=== PATIENT | female | born 1955 | race Caucasian/White ===

== ENCOUNTER 2020-07-11 08:30 | Emergency (ER) | payer OTHER ==
[~2020-07-11] VITALS: Ht 157.5 cm; Wt 78.5 kg
[2020-07-11 09:42] VITALS: BP 148/67
== END 2020-07-11 09:47 | disposition home or self-care (01) ==
LOC: ER 08:30
DX: N75.0 Cyst of Bartholin's gland (principal); B37.2 Candidiasis of skin and nail; Z88.0 Allergy status to penicillin; Z88.1 Allergy status to other antibiotic agents; Z88.2 Allergy status to sulfonamides

== ENCOUNTER 2022-04-30 20:14 | Inpatient (IN) | payer OTHER ==
[~2022-04-30] VITALS: Ht 157.5 cm; Wt 84.2 kg
[2022-05-01] VITALS (86 sets, daily range): BP systolic 104–151; BP diastolic 42–108
[2022-05-01] MEDS ORDERED: DOCUSATE SOD 100 MG CAP PO PRN (00:30)
[2022-05-01] MEDS ORDERED: diphenhdrAMINE HCL 50 MG/1 ML VL IV PRN (00:30)
[2022-05-01] MEDS ORDERED: SODIUM CHLORIDE 0.9% 1,000 ML IV SCH (00:30)
[2022-05-01] MEDS ORDERED: ACETAMINOPHEN 325 MG TAB PO PRN (00:30)
[2022-05-01] MEDS ORDERED: ONDANSETRON HCL 4 MG/2 ML VIAL IV PRN (00:30)
[2022-05-01] MEDS ORDERED: SODIUM FERR GLUC 62.5MG/5ML 125 MG in SODIUM CHL 0.9% 100 ML IV ONE (00:30)
[2022-05-01] MEDS ORDERED: NITROGLYCERIN 0.4 MG SL TAB SL PRN (00:30)
[2022-05-01] MEDS ORDERED: MORPHINE SULFATE INJ 2 MG/ml SYRG IV PRN (00:30)
[2022-05-01] MEDS ORDERED: FUROSEMIDE 40 MG/4 ML VIAL IV ONE (00:45)
[2022-05-01 00:52] LABS: Basophils # (auto) 0 10 ^3/uL (0-0.2); Eosinophils # (auto) 0 10 ^3/uL (0-0.8); Monocytes # (auto) 0.7 10 ^3/uL (0-1.3)
[2022-05-01 00:54] LABS: Basophils % (auto) 0.1 % (0.0-2.0); Lymphocytes # (auto) 0.6 10 ^3/uL (0.4-5.4); Mean Corpuscular Hemoglobin 24.2 pg (28.0-32.0); Mean Corpuscular Hgb Conc. 29.5 g/dL (32.0-36.0); Monocytes % (auto) 8.9 % (0.0-12.0); Neutrophils # (auto) 6.6 10 ^3/uL (1.6-8.6); Nucleated Red Blood Cells % 0.3 %; Red Blood Cells 1.71 10^6/uL (4.0-5.20); White Blood Cell 7.9 10^3/uL (4.4-10.8)
[2022-05-01 00:56] LABS: Red Cell Distribution Width 25.9 % (11.8-14.3)
[2022-05-01 00:58] LABS: Hemoglobin 4.1 g/dL (12.2-16.2)
[2022-05-01 01:15] LABS: Albumin 2.7 g/dL (3.4-5.0); BUN/Creatinine Ratio 31.3; Calcium 8.1 mg/dL (8.5-10.1)
[2022-05-01 01:17] LABS: Bilirubin, Total 0.4 mg/dL (0.2-1.0)
[2022-05-01] MEDS: HYDROcodone-ACET 5/325MG TAB PO PRN ×2 (01:56→21:37)
[2022-05-01] MEDS ORDERED: diphenhdrAMINE HCL 25 MG CAP PO ONE (02:45)
[2022-05-01] MEDS ORDERED: ACETAMINOPHEN 500 MG TAB PO ONE (02:45)
[2022-05-01 05:50] LABS: Basophils # (auto) 0 10 ^3/uL (0-0.2); Eosinophils # (auto) 0 10 ^3/uL (0-0.8); Eosinophils % (auto) 0.1 % (0.0-7.0); Hematocrit 15.3 % (36.0-46.0); Lymphocytes # (auto) 1.1 10 ^3/uL (0.4-5.4); Neutrophils # (auto) 5.6 10 ^3/uL (1.6-8.6)
[2022-05-01 05:54] LABS: Basophils % (auto) 0.5 % (0.0-2.0); Lymphocytes % (auto) 15.1 % (10.0-50.0); Mean Corpuscular Hemoglobin 25.4 pg (28.0-32.0); Mean Corpuscular Hgb Conc. 30.4 g/dL (32.0-36.0); Mean Corpuscular Volume 83.5 fL (80.0-100.0); Monocytes # (auto) 0.8 10 ^3/uL (0-1.3); Monocytes % (auto) 10.3 % (0.0-12.0); Nucleated Red Blood Cells % 0.2 %; Red Blood Cells 1.83 10^6/uL (4.0-5.20); White Blood Cell 7.6 10^3/uL (4.4-10.8)
[2022-05-01 06:12] LABS: Albumin 2.8 g/dL (3.4-5.0); Calcium 7.9 mg/dL (8.5-10.1); Potassium 4.2 mmol/L (3.5-5.1)
[2022-05-01 06:14] LABS: Red Cell Distribution Width 26.7 % (11.8-14.3)
[2022-05-01 06:15] LABS: Hemoglobin 4.6 g/dL (12.2-16.2)
[2022-05-01 06:17] LABS: Bilirubin, Total 0.4 mg/dL (0.2-1.0); Total Protein 6.8 g/dL (6.4-8.2)
[2022-05-01] MEDS: LEVOTHYROXINE SODIUM 25 MCG TAB PO SCH (06:46)
[2022-05-01] MEDS ORDERED: OPTISON 3ml Vial for INJ IV ONE (10:18)
[2022-05-01] MEDS ORDERED: ENOXAPARIN SOD 80 MG/0.8ML SYRINGE SC SCH (10:44)
[2022-05-01] MEDS: FAMOTIDINE (10MG/ML) 2ML VL IV SCH ×2 (11:38→21:15)
[2022-05-01] MEDS: FUROSEMIDE 40 MG/4 ML VIAL IV SCH (11:39)
[2022-05-01] MEDS: ASPirin 81 mg TAB PO SCH (11:39)
[2022-05-01] MEDS: CARVEDILOL 3.125 MG TAB PO SCH ×2 (11:40→21:12)
[2022-05-01] MEDS: SODIUM FERR GLUC 62.5MG/5ML 125 MG in SODIUM CHL 0.9% 100 ML IV SCH (12:32)
[2022-05-01 12:43] LABS: Urine Bacteria NONE SEEN /hpf (None Seen); Urine Blood Negative /uL (Negative); Urine Specific Gravity 1.006 (1.001-1.035); Urine WBC <1 /hpf (0 - 5)
[2022-05-01 14:28] LABS: Hematocrit 20.9 % (36.0-46.0)
[2022-05-01 14:39] LABS: Hemoglobin 6.3 g/dL (12.2-16.2)
[2022-05-01 22:53] LABS: Hematocrit 23.9 % (36.0-46.0); Hemoglobin 7.3 g/dL (12.2-16.2)
[2022-05-02] VITALS (32 sets, daily range): BP systolic 122–144; BP diastolic 46–81
[2022-05-02 05:45] LABS: Hemoglobin 7.6 g/dL (12.2-16.2); White Blood Cell 3.7 10^3/uL (4.4-10.8)
[2022-05-02 05:48] LABS: Hematocrit 23.8 % (36.0-46.0); Mean Corpuscular Hemoglobin 27.2 pg (28.0-32.0); Mean Corpuscular Hgb Conc. 31.9 g/dL (32.0-36.0); Mean Corpuscular Volume 85.1 fL (80.0-100.0); Red Blood Cells 2.79 10^6/uL (4.0-5.20)
[2022-05-02 05:55] LABS: Potassium 3.6 mmol/L (3.5-5.1)
[2022-05-02 06:06] LABS: Ferritin 32.8 ng/mL (10-322); Free T4 (Free Thyroxine) 1.02 ng/dL (0.89-1.76)
[2022-05-02 06:09] LABS: Albumin 2.5 g/dL (3.4-5.0); Bilirubin, Total 0.4 mg/dL (0.2-1.0); CRP High Sensitivity 2.13 mg/dL (< 0.3); Calcium 8.3 mg/dL (8.5-10.1); Total Protein 6.5 g/dL (6.4-8.2)
[2022-05-02 06:17] LABS: Thyroid Stimulating Hormone 1.58 uIU/mL (0.358-3.74)
[2022-05-02 06:26] LABS: Red Cell Distribution Width 28.4 % (11.8-14.3)
[2022-05-02 06:28] LABS: Basophils % (manual) 0 (0.0-2.0); Blast Cells 0; Metamyelocytes % 0; Myelocytes % 0; Promyelocytes % 0; Reactive Lymphocytes 0
[2022-05-02] MEDS: LEVOTHYROXINE SODIUM 25 MCG TAB PO SCH (06:28)
[2022-05-02 08:16] LABS: Band Neutrophils % (manual) 11; Eosinophils % (manual) 4 (0-7); Lymphocytes % (manual) 43 (10.0-50.0); Monocytes % (manual) 15 (0-12)
[2022-05-02] MEDS: ASPirin 81 mg TAB PO SCH (09:50)
[2022-05-02] MEDS: FAMOTIDINE (10MG/ML) 2ML VL IV SCH ×2 (09:50→22:15)
[2022-05-02] MEDS: FUROSEMIDE 40 MG/4 ML VIAL IV SCH (09:51)
[2022-05-02] MEDS: CARVEDILOL 3.125 MG TAB PO SCH ×2 (09:53→22:16)
[2022-05-02] MEDS ORDERED: ENOXAPARIN SOD 40 MG/0.4 ML SYRINGE SC SCH (10:00)
[2022-05-02] MEDS: SODIUM FERR GLUC 62.5MG/5ML 125 MG in SODIUM CHL 0.9% 100 ML IV SCH (12:29)
[2022-05-02] MEDS ORDERED: FURO40TA4 PO (23:23)
[2022-05-02] MEDS ORDERED: FERR1TAB36 PO (23:23)
[2022-05-02] MEDS ORDERED: GABA-339 PO (23:23)
[2022-05-02] MEDS ORDERED: RIZA5TAB35 OR (23:23)
[2022-05-02] MEDS ORDERED: PARO1TAB33 PO (23:23)
[2022-05-02] MEDS ORDERED: ALBU108A5 PO (23:23)
[2022-05-02] MEDS ORDERED: CYAN50008 PO (23:23)
[2022-05-02] MEDS ORDERED: AMIO200T4 PO (23:23)
[2022-05-02] MEDS ORDERED: LEVO75TA6 PO (23:23)
[2022-05-02] MEDS ORDERED: ASPI1TAB37 PO (23:23)
[2022-05-03 05:00] VITALS: BP 159/75
[2022-05-03] MEDS: LEVOTHYROXINE SODIUM 25 MCG TAB PO SCH (06:22)
[2022-05-03] MEDS ORDERED: LIDOCAINE VISCOUS 2% 15ML UD ONE (07:56)
[2022-05-03] MEDS ORDERED: diphenhdrAMINE HCL 50 MG/1 ML VL ONE (07:57)
[2022-05-03] MEDS ORDERED: MIDAZOLAM HCL 5 MG/ML-1ML VIAL ONE (07:57)
[2022-05-03] MEDS ORDERED: fentaNYL CITRATE 100 MCG/2 ML VL ONE (07:57)
[2022-05-03 08:35] LABS: Potassium 3.5 mmol/L (3.5-5.1)
[2022-05-03 08:43] LABS: Albumin 2.7 g/dL (3.4-5.0); BUN/Creatinine Ratio 20.3; Bilirubin, Total 0.3 mg/dL (0.2-1.0); Calcium 8.3 mg/dL (8.5-10.1); Total Protein 6.8 g/dL (6.4-8.2)
[2022-05-03 08:45] LABS: Folate (Folic Acid) 14.88 ng/mL (5.38-24)
[2022-05-03 09:00] VITALS: BP 160/77
[2022-05-03] MEDS ORDERED: diphenhdrAMINE HCL 50 MG/1 ML VL IV ONE ×2 (09:16→09:17)
[2022-05-03] MEDS ORDERED: MIDAZOLAM HCL 5 MG/ML-1ML VIAL IV ONE ×2 (09:16→09:25)
[2022-05-03] MEDS ORDERED: LIDOCAINE VISCOUS 2% 15ML UD MT ONE (09:16)
[2022-05-03] MEDS ORDERED: fentaNYL CITRATE 100 MCG/2 ML VL IV ONE ×3 (09:16→09:25)
[2022-05-03 11:30] VITALS: BP 133/72
[2022-05-03] MEDS: FUROSEMIDE 40 MG/4 ML VIAL IV SCH (12:19)
[2022-05-03] MEDS: FAMOTIDINE (10MG/ML) 2ML VL IV SCH ×2 (12:19→22:58)
[2022-05-03] MEDS: CARVEDILOL 3.125 MG TAB PO SCH ×2 (12:20→22:59)
[2022-05-03] MEDS: PANTOPRAZOLE 40 MG TAB PO SCH ×2 (12:20→22:59)
[2022-05-03] MEDS: SODIUM FERR GLUC 62.5MG/5ML 125 MG in SODIUM CHL 0.9% 100 ML IV SCH (12:20)
[2022-05-03] MEDS ORDERED: IOHEXOL 350 MG/ML 100ML IJ ONE (13:00)
[2022-05-03] MEDS: SUCRALFATE 1 GM/10 ML ORAL SUSP PO SCH ×3 (14:20→22:58)
[2022-05-03] MEDS: NYSTATIN (MOUTH-THROAT) 500,000 UNITS/5 ML SUSP MT SCH ×3 (14:20→22:58)
[2022-05-03 17:00] VITALS: BP 115/59
[2022-05-03 21:13] VITALS: BP 124/59
[2022-05-04 04:53] VITALS: BP 135/69
[2022-05-04] MEDS: NYSTATIN (MOUTH-THROAT) 500,000 UNITS/5 ML SUSP MT SCH ×3 (06:09→17:43)
[2022-05-04] MEDS: SUCRALFATE 1 GM/10 ML ORAL SUSP PO SCH ×3 (06:09→16:39)
[2022-05-04] MEDS: LEVOTHYROXINE SODIUM 25 MCG TAB PO SCH (06:09)
[2022-05-04 09:00] VITALS: BP 132/64
[2022-05-04] MEDS: FUROSEMIDE 40 MG/4 ML VIAL IV SCH (09:51)
[2022-05-04] MEDS: FAMOTIDINE (10MG/ML) 2ML VL IV SCH (09:51)
[2022-05-04] MEDS: PANTOPRAZOLE 40 MG TAB PO SCH (09:51)
[2022-05-04] MEDS: CARVEDILOL 3.125 MG TAB PO SCH (09:52)
[2022-05-04] MEDS ORDERED: FERR-7 PO (10:58)
[2022-05-04] MEDS ORDERED: PANT40T PO (11:06)
[2022-05-04] MEDS: SODIUM FERR GLUC 62.5MG/5ML 125 MG in SODIUM CHL 0.9% 100 ML IV SCH (12:50)
[2022-05-04 13:27] VITALS: BP 112/76
== END 2022-05-04 18:20 | disposition home or self-care (01) | DRG 380 ==
LOC: ICU CENTRL 23:41 → CENTRAL 05-02 15:37
PROVIDERS: ADMIT Internal Medicine; ATTEND Nurse Practitioner Acute Care
PROC: 30233N1 Transfusion of Nonautologous Red Blood Cells into Peripheral Vein, Percutaneous Approach (ICD-10-PCS; 2022-05-01)
PROC: 0DB68ZX Excision of Stomach, Via Natural or Artificial Opening Endoscopic, Diagnostic (ICD-10-PCS; 2022-05-03)
PROC: 0DB58ZX Excision of Esophagus, Via Natural or Artificial Opening Endoscopic, Diagnostic (ICD-10-PCS; 2022-05-03)
PROC: 0DB98ZX Excision of Duodenum, Via Natural or Artificial Opening Endoscopic, Diagnostic (ICD-10-PCS; principal; 2022-05-03 09:09)
DX: K22.11 Ulcer of esophagus with bleeding (principal); E43 Unspecified severe protein-calorie malnutrition; I26.99 Other pulmonary embolism without acute cor pulmonale; I50.22 Chronic systolic (congestive) heart failure; K29.71 Gastritis, unspecified, with bleeding; I48.91 Unspecified atrial fibrillation; D75.839 Thrombocytosis, unspecified; E87.6 Hypokalemia; E03.9 Hypothyroidism, unspecified; D64.9 Anemia, unspecified; Z20.822 Contact with and (suspected) exposure to COVID-19; G35 Multiple sclerosis; I27.20 Pulmonary hypertension, unspecified; I11.0 Hypertensive heart disease with heart failure; K44.9 Diaphragmatic hernia without obstruction or gangrene; Z88.0 Allergy status to penicillin; Z68.33 Body mass index [BMI] 33.0-33.9, adult; Z88.8 Allergy status to other drugs, medicaments and biological substances; Z88.2 Allergy status to sulfonamides
CPT/HCPCS: 36415; 43239; 71045; 71260; 74177; 74183; 76700; 80053; 81001; 82040; 82270; 82306; 82607; 82668; 82728; 82746; 83010; 83615; 83880; 84439; 84443; 84702; 85007; 85014; 85018; 85025; 85027; 85045; 85652; 86141; 86431; 86850; 86880; 86900; 86901; 86920; 87081; 93306; 93970; 97110; 97116; 97163; G0378; J2250; J3490; Q9956

== ENCOUNTER 2022-11-01 10:34 | Emergency (ER) | payer BC, OTHER ==
[~2022-11-01] VITALS: Ht 167.6 cm; Wt 74.3 kg
[~2022-11-01 10:34] MED LIST: ALBU108A5 PO; AMIO200T13 PO; ASPI-628 PO; CYAN50008 PO; FERR-7 PO; FERR1TAB36 PO; FURO40TA4 PO; GABA-339 PO; LEVO75TA6 PO; PANT40T PO; PARO1TAB33 PO; RIZA5TAB35 OR
[2022-11-01 14:49] VITALS: BP 125/53; PULSE 97; RESP 16; TEMP 98.9; O2SAT 97
== END 2022-11-01 14:51 | disposition home or self-care (01) ==
LOC: ER 10:34
DX: G35 Multiple sclerosis (principal); Z76.0 Encounter for issue of repeat prescription; Z88.0 Allergy status to penicillin; Z88.1 Allergy status to other antibiotic agents; Z88.8 Allergy status to other drugs, medicaments and biological substances; Z79.82 Long term (current) use of aspirin; Z79.899 Other long term (current) drug therapy